=== PATIENT | male | born 1985 | race Caucasian/White ===

== ENCOUNTER 2018-05-30 16:54 | Emergency (ER) | payer OTHER ==
[2018-05-30 17:07] VITALS: Ht 172.7 cm
[2018-05-30 19:02] VITALS: BP 135/69
== END 2018-05-30 19:02 | disposition home or self-care (01) ==
LOC: ED 16:54
DX: N50.812 Left testicular pain (principal); E11.9 Type 2 diabetes mellitus without complications; E10.8 Type 1 diabetes mellitus with unspecified complications; Z98.890 Other specified postprocedural states

== ENCOUNTER 2018-06-13 11:12 | Emergency (ER) | payer OTHER ==
[~2018-06-13] VITALS: Ht 172.7 cm; Wt 76.3 kg
[2018-06-13 11:14] VITALS: BP 127/88; Ht 172.7 cm; Wt 76.3 kg
[2018-06-13 12:19] LABS: PLATELET COUNT 248 x10^3mcL (130-400); RED CELL DISTRIBUTION WIDTH 12.4 % (11.5-14.5)
[2018-06-13 12:34] LABS: T3 TOTAL 0.8 ng/mL
[2018-06-13 12:38] LABS: FREE T4 0.94 ng/dL (0.76-1.46); FREE THYROXINE INDEX 2.5 ug/dL (1.4-4.5); T4(THYROXINE) 6.2 ug/dL (4.7-13.3)
[2018-06-13 12:48] LABS: CALCIUM 8.5 mg/dL (8.5-10.1); CHLORIDE SERUM 100 mmol/L (98-107); CREATININE SERUM 0.9 mg/dL (0.7-1.3); GFR1 > 60 mL/min; GLUCOSE SERUM 267 mg/dL (74-106); SODIUM SERUM 134 mmol/L (136-145)
[2018-06-13 12:52] LABS: ALKALINE PHOSPHATASE 105 U/L (46-116); ALT/SGPT 73 U/L (16-63); AST/SGOT 26 U/L (15-37); BILIRUBIN TOTAL 0.76 mg/dL (0.20-1.00); CHOLESTEROL 143 mg/dL (<200); HDL CHOLESTEROL 47 mg/dL (40-60); LIPASE 101 IU/L (73-393); TOTAL PROTEIN, SERUM 6.8 g/dL (6.4-8.2); TRIGLYCERIDES 33 mg/dL (<150)
== END 2018-06-13 13:29 | disposition home or self-care (01) ==
LOC: ED 11:12
PROVIDERS: Specialist
DX: R07.89 Other chest pain (principal); E11.9 Type 2 diabetes mellitus without complications; Z98.890 Other specified postprocedural states
CPT/HCPCS: 36415; 83880; 84439; J1885; Q0092

== ENCOUNTER 2020-06-13 05:00 | Emergency (ER) | payer OTHER ==
[~2020-06-13] VITALS: Ht 172.7 cm; Wt 72.1 kg
[2020-06-13 06:47] VITALS: BP 133/91
== END 2020-06-13 06:47 | disposition home or self-care (01) ==
LOC: ED 05:00
DX: M54.6 Pain in thoracic spine (principal); E11.9 Type 2 diabetes mellitus without complications; Z98.890 Other specified postprocedural states